=== PATIENT | male | born 1955 | race Caucasian/White ===

== ENCOUNTER 2020-12-23 18:16 | Observation (INO) ==
[2020-12-23] MEDS ORDERED: Calcium Gluconate 1gm/50mL 1 GM/50 ML BAG IVPB ONE (22:11)
[2020-12-23] MEDS ORDERED: Perflutren Lipid Microsphere 1.3 ML in 0.9 % Sodium Chloride 8.7 ML IVP PRN (22:54)
[2020-12-23] MEDS ORDERED: Ondansetron 4 MG/2 ML VIAL IVP PRN (22:55)
[2020-12-23] MEDS ORDERED: Naloxone 0.4 MG/ML INJ IVP PRN (22:55)
[2020-12-23] MEDS ORDERED: Nitroglycerin 0.4 MG TAB.SUBL SL PRN (22:58)
[2020-12-23] MEDS ORDERED: Aspirin Enteric Coated 325 MG Tablet PO SCH (23:00)
[2020-12-23] MEDS ORDERED: Melatonin 3 MG TABLET PO ONE (23:01)
[2020-12-23] MEDS ORDERED: Aspirin Enteric Coated 325 MG Tablet PO ONE (23:07)
[2020-12-23] MEDS ORDERED: *HR* Dextrose 50 % in Water (Vial) 50 ML VIAL IVP PRN (23:42)
[2020-12-23] MEDS ORDERED: D5% in Water 1,000 ML IVC PRN (23:42)
[2020-12-23] MEDS ORDERED: Dextrose Gel 15 GM/37.5 ML TUBE PO PRN ×2 (23:42)
[2020-12-24] MEDS: Insulin LISPRO 300 UNITS/3 ML VIAL SUBQ SCH ×3 (00:10→15:04)
[2020-12-24] MEDS ORDERED: Saliva Stimulant 44.3ml BOTTLE PO PRN (01:12)
[2020-12-24 06:06] LABS: Hematocrit 35.8 % (37.5-50.1); Mean Corpuscular HGB Conc 36.3 g/dL (31.6-35.5); Mean Corpuscular Hemoglobin 33.5 pg (28.0-33.3); Mean Corpuscular Volume 92.3 fL (83.0-100.0); Mean Platelet Volume 9.2 fL (9.4-12.4); Platelet Count 179 K/mcL (140-400); Red Blood Count 3.88 M/mcL (4.19-5.50); Red Cell Distribution Width 11.7 % (11.5-14.5); White Blood Count 11.3 K/mcL (4.3-11.1)
[2020-12-24] MEDS: *HR* Heparin 5,000 UNIT/ML VIAL SQ SCH ×3 (06:16→21:03)
[2020-12-24 06:31] LABS: BUN/Creatinine Ratio 15 (6-26); Blood Urea Nitrogen 13 mg/dL (8-23); Calcium 9.4 mg/dL (8.6-10.3); Carbon Dioxide 25 mEq/L (23-29); Chol/HDL Ratio 4.5 (0-4.9); Cholesterol 159 mg/dL (< 200); Glucose 140 mg/dL (70-105); HDL Cholesterol 35 mg/dL (40-59); LDL Cholesterol,Calculated 97 mg/dL (< 100); Triglycerides 135 mg/dL (< 150); eGFR For African Americans > 60 (> 60); eGFR For Non-African Americans > 60 (> 60)
[2020-12-24] MEDS ORDERED: Regadenoson 0.4 MG/5 ML SYRINGE IVP ONE (06:34)
[2020-12-24 06:35] LABS: Magnesium 1.8 mg/dL (1.6-2.6)
[2020-12-24 06:39] LABS: Thyroid Stimulating Hormone 2.449 mcIU/mL (0.340-5.600)
[2020-12-24 06:49] LABS: Chloride 90 mEq/L (98-107); Osmolality,Calculated 256 (280-300); Potassium 3.8 mEq/L (3.5-5.1); Sodium 122 mEq/L (136-145)
[2020-12-24 08:01] LABS: Estimated Average Glucose 140 mg/dl; Hemoglobin A1C 6.5 %
[2020-12-24] MEDS: Aspirin Enteric Coated 81 MG Tablet PO SCH (10:41)
[2020-12-24] MEDS: Acetaminophen 325 MG TABLET PO PRN (10:52)
[2020-12-24 12:45] LABS: Folate 6.1 ng/mL (3.0-16.0)
[2020-12-24] MEDS ORDERED: 0.9 % Sodium Chloride 1,000 ML IVC SCH (13:15)
[2020-12-24] MEDS ORDERED: lisinopriL 20 MG TABLET PO ONE (15:32)
[2020-12-24] MEDS ORDERED: Melatonin 3 MG TABLET PO PRN (17:19)
[2020-12-24] MEDS ORDERED: *HR* LORazepam 1 MG TABLET PO PRN (18:27)
[2020-12-24] MEDS: Acyclovir 200 MG CAPSULE PO SCH (21:03)
[2020-12-25 02:14] LABS: Hematocrit 35.5 % (37.5-50.1); Hemoglobin 12.3 g/dL (12.9-16.9); Mean Corpuscular HGB Conc 34.6 g/dL (31.6-35.5); Mean Corpuscular Hemoglobin 32.9 pg (28.0-33.3); Mean Corpuscular Volume 94.9 fL (83.0-100.0); Mean Platelet Volume 9.4 fL (9.4-12.4); Platelet Count 185 K/mcL (140-400); Red Blood Count 3.74 M/mcL (4.19-5.50); Red Cell Distribution Width 11.6 % (11.5-14.5); White Blood Count 10.5 K/mcL (4.3-11.1)
[2020-12-25 02:22] LABS: BUN/Creatinine Ratio 13 (6-26); Blood Urea Nitrogen 12 mg/dL (8-23); Calcium 9.1 mg/dL (8.6-10.3); Carbon Dioxide 27 mEq/L (23-29); Chloride 90 mEq/L (98-107); Glucose 137 mg/dL (70-105); Osmolality,Calculated 258 (280-300); Potassium 3.9 mEq/L (3.5-5.1); Sodium 123 mEq/L (136-145); eGFR For African Americans > 60 (> 60); eGFR For Non-African Americans > 60 (> 60)
[2020-12-25] MEDS: Acetaminophen 325 MG TABLET PO PRN (05:24)
[2020-12-25] MEDS: *HR* Heparin 5,000 UNIT/ML VIAL SQ SCH (05:25)
[2020-12-25 06:20] VITALS: BP 135/84
[2020-12-25] MEDS ORDERED: carvediloL 6.25 MG TABLET PO SCH (08:00)
[2020-12-25] MEDS ORDERED: lisinopriL 20 MG TABLET PO SCH (09:00)
[2020-12-25] MEDS: Aspirin Enteric Coated 81 MG Tablet PO SCH (09:21)
[2020-12-25] MEDS: Acyclovir 200 MG CAPSULE PO SCH (09:22)
== END 2020-12-25 11:00 | disposition home or self-care (01) ==
LOC: 2NNU → SUATTDRO 19:56 → 2ANU 12-24 11:57
PROVIDERS: ADMIT Internal Medicine; ATTEND Internal Medicine

== ENCOUNTER 2021-12-15 09:37 | Inpatient (IN) ==
[2021-12-15] MEDS ORDERED: Ondansetron 4 MG/2 ML VIAL IVP PRN (11:42)
[2021-12-15] MEDS ORDERED: Nitroglycerin 0.4 MG TAB.SUBL SL PRN (11:42)
[2021-12-15] MEDS ORDERED: Metoprolol XL (24 HR) Succ 25 MG TAB.ER.24H PO SCH (11:45)
[2021-12-15 12:29] LABS: Basophils % 0.6 %; Eosinophils # 0.4 K/mcL (0.0-0.6); Eosinophils % 5.8 %; Hematocrit 32.8 % (37.5-50.1); Hemoglobin 11.5 g/dL (12.9-16.9); Immature Granulocytes % 0.3 % (0-4); Lymphocytes # 1.3 K/mcL (0.6-4.6); Lymphocytes % 20.7 %; Mean Corpuscular HGB Conc 35.1 g/dL (31.6-35.5); Mean Platelet Volume 9.4 fL (9.4-12.4); Monocytes # 0.7 K/mcL (0.0-1.3); Monocytes % 10.8 %; Neutrophils # 3.9 K/mcL (1.6-8.9); Platelet Count 134 K/mcL (140-400); Red Blood Count 3.38 M/mcL (4.19-5.50); Red Cell Distribution Width 14.4 % (11.5-14.5); Segmented Neutrophils % 61.8 %; White Blood Count 6.4 K/mcL (4.3-11.1)
[2021-12-15 12:51] LABS: Alanine Aminotransferase 20 Units/L (7-52); Albumin 3.7 g/dL (3.5-5.7); Albumin/Globulin Ratio 1.3 (1.1-2.2); Alkaline Phosphatase 62 Units/L (34-104); Aspartate Amino Transferase 13 Units/L (13-39); BUN/Creatinine Ratio 8 (6-26); Blood Urea Nitrogen 8 mg/dL (8-23); Calcium 5.9 mg/dL (8.6-10.3); Carbon Dioxide 23 mEq/L (23-29); Chloride 100 mEq/L (98-107); Globulin 2.9 g/dL (2.4-3.5); Glucose 109 mg/dL (70-105); Osmolality,Calculated 273 (280-300); Potassium 3.5 mEq/L (3.5-5.1); Sodium 132 mEq/L (136-145); Total Protein 6.6 g/dL (6.4-8.9); Troponin I 0.12 ng/mL (< 0.04); eGFR For African Americans > 60 (> 60); eGFR For Non-African Americans > 60 (> 60)
[2021-12-15] MEDS: Calcium Gluconate 1gm/50mL 1 GM/50 ML BAG IVPB SCH ×2 (13:27→14:28)
[2021-12-15] MEDS ORDERED: *HR* Heparin 5,000 UNIT/ML VIAL IVP ONE (13:47)
[2021-12-15] MEDS ORDERED: *HR* Heparin 5,000 UNIT/ML VIAL IVP PRN ×2 (13:47)
[2021-12-15] MEDS: Heparin 25,000UNIT/250ML 1/2NS 25,000 UNIT/250 ML IV.SOLN IVC SCH (14:26)
[2021-12-15 14:54] LABS: Hematocrit 33.2 % (37.5-50.1); Hemoglobin 11.6 g/dL (12.9-16.9); Mean Corpuscular HGB Conc 34.9 g/dL (31.6-35.5); Mean Corpuscular Hemoglobin 33.9 pg (28.0-33.3); Mean Corpuscular Volume 97.1 fL (83.0-100.0); Mean Platelet Volume 9.6 fL (9.4-12.4); Platelet Count 131 K/mcL (140-400); Red Blood Count 3.42 M/mcL (4.19-5.50); Red Cell Distribution Width 14.5 % (11.5-14.5); White Blood Count 6.1 K/mcL (4.3-11.1)
[2021-12-15 15:00] LABS: Heparin anti-factor XA UFH < 0.04 IU/mL (0.30-0.70); INR 1.1; Prothrombin Time 12.6 Seconds (9.4-12.1)
[2021-12-15] MEDS: Spironolactone 25 MG TABLET PO SCH (17:34)
[2021-12-15] MEDS: Bumetanide 1 MG TABLET PO SCH (17:34)
[2021-12-15] MEDS: CEVIMELINE HCL 30 MG PO SCH (20:17)
[2021-12-16 03:46] LABS: Basophils % 0.7 %; Eosinophils # 0.4 K/mcL (0.0-0.6); Eosinophils % 6.1 %; Hematocrit 31.2 % (37.5-50.1); Immature Granulocytes % 0.8 % (0-4); Lymphocytes # 1.2 K/mcL (0.6-4.6); Lymphocytes % 20.1 %; Mean Corpuscular HGB Conc 35.3 g/dL (31.6-35.5); Mean Corpuscular Hemoglobin 34.5 pg (28.0-33.3); Mean Corpuscular Volume 97.8 fL (83.0-100.0); Mean Platelet Volume 9.9 fL (9.4-12.4); Monocytes # 0.6 K/mcL (0.0-1.3); Monocytes % 9.6 %; Neutrophils # 3.7 K/mcL (1.6-8.9); Platelet Count 121 K/mcL (140-400); Red Blood Count 3.19 M/mcL (4.19-5.50); Red Cell Distribution Width 14.3 % (11.5-14.5); Segmented Neutrophils % 62.7 %; White Blood Count 5.9 K/mcL (4.3-11.1)
[2021-12-16 03:55] LABS: INR 1.2
[2021-12-16 04:08] LABS: Alanine Aminotransferase 19 Units/L (7-52); Albumin 3.7 g/dL (3.5-5.7); Albumin/Globulin Ratio 1.4 (1.1-2.2); Alkaline Phosphatase 61 Units/L (34-104); Aspartate Amino Transferase 14 Units/L (13-39); BUN/Creatinine Ratio 10 (6-26); Bilirubin,Total 1.1 mg/dL (0.3-1.0); Blood Urea Nitrogen 11 mg/dL (8-23); Calcium 6.4 mg/dL (8.6-10.3); Carbon Dioxide 24 mEq/L (23-29); Chloride 99 mEq/L (98-107); Globulin 2.7 g/dL (2.4-3.5); Glucose 126 mg/dL (70-105); Magnesium 1.4 mg/dL (1.6-2.6); Osmolality,Calculated 273 (280-300); Potassium 3.4 mEq/L (3.5-5.1); Sodium 131 mEq/L (136-145); Total Protein 6.4 g/dL (6.4-8.9); eGFR For African Americans > 60 (> 60); eGFR For Non-African Americans > 60 (> 60)
[2021-12-16 04:56] LABS: VBG Ionized Calcium 0.79 mmol/L (1.15-1.35)
[2021-12-16] MEDS: Loratadine 10 MG TABLET PO SCH (08:51)
[2021-12-16] MEDS: carvediloL 6.25 MG TABLET PO SCH ×2 (08:51→17:38)
[2021-12-16] MEDS: Cyanocobalamin (B-12) 1,000 MCG TABLET PO SCH (08:51)
[2021-12-16] MEDS: Aspirin 81 MG TAB.CHEW PO SCH (08:51)
[2021-12-16] MEDS: lisinopriL 20 MG TABLET PO SCH (08:54)
[2021-12-16] MEDS: Spironolactone 25 MG TABLET PO SCH (08:54)
[2021-12-16] MEDS ORDERED: (Dapagliflozin Propanediol [Farxiga] 10 MG Tablet) PO SCH (09:00)
[2021-12-16] MEDS: Bumetanide 1 MG/4 ML VIAL IVP SCH ×2 (09:01→17:38)
[2021-12-16] MEDS: Calcium Gluconate 1gm/50mL 1 GM/50 ML BAG IVPB SCH ×2 (09:08→09:41)
[2021-12-16] MEDS: CEVIMELINE HCL 30 MG PO SCH ×3 (09:08→21:41)
[2021-12-16] MEDS: LENALIDOMIDE 10 MG PO SCH (09:08)
[2021-12-16] MEDS: Bumetanide 1 MG TABLET PO SCH (09:21)
[2021-12-16] MEDS: Heparin 25,000UNIT/250ML 1/2NS 25,000 UNIT/250 ML IV.SOLN IVC SCH ×3 (09:41→23:33)
[2021-12-16] MEDS ORDERED: Dextrose Gel 15 GM/37.5 ML TUBE PO PRN ×2 (11:16)
[2021-12-16] MEDS ORDERED: D5% in Water 1,000 ML IVC PRN (11:16)
[2021-12-16] MEDS ORDERED: *HR* Dextrose 50 % in Water (Syg) 50 ML SYRINGE IVP PRN (11:16)
[2021-12-16] MEDS: Insulin LISPRO 300 UNITS/3 ML VIAL SUBQ SCH ×3 (11:42→21:42)
[2021-12-16] MEDS ORDERED: Ergocalciferol (VIT D2) 50,000 UNIT (1.25MG) CAP PO SCH (12:00)
[2021-12-17 03:18] LABS: Basophils % 0.8 %; Eosinophils # 0.3 K/mcL (0.0-0.6); Eosinophils % 6.2 %; Hematocrit 28.1 % (37.5-50.1); Hemoglobin 9.6 g/dL (12.9-16.9); Immature Granulocytes % 0.6 % (0-4); Lymphocytes # 1.4 K/mcL (0.6-4.6); Lymphocytes % 26.6 %; Mean Corpuscular HGB Conc 34.2 g/dL (31.6-35.5); Mean Corpuscular Hemoglobin 33.4 pg (28.0-33.3); Mean Corpuscular Volume 97.9 fL (83.0-100.0); Mean Platelet Volume 10.1 fL (9.4-12.4); Monocytes # 0.7 K/mcL (0.0-1.3); Monocytes % 12.2 %; Neutrophils # 2.9 K/mcL (1.6-8.9); Platelet Count 120 K/mcL (140-400); Red Blood Count 2.87 M/mcL (4.19-5.50); Red Cell Distribution Width 14.3 % (11.5-14.5); Segmented Neutrophils % 53.6 %; White Blood Count 5.3 K/mcL (4.3-11.1)
[2021-12-17 03:38] LABS: BUN/Creatinine Ratio 15 (6-26); Blood Urea Nitrogen 17 mg/dL (8-23); Calcium 6.8 mg/dL (8.6-10.3); Carbon Dioxide 24 mEq/L (23-29); Chloride 101 mEq/L (98-107); Glucose 112 mg/dL (70-105); Osmolality,Calculated 278 (280-300); Potassium 3.5 mEq/L (3.5-5.1); Sodium 133 mEq/L (136-145); eGFR For African Americans > 60 (> 60); eGFR For Non-African Americans > 60 (> 60)
[2021-12-17] MEDS: CEVIMELINE HCL 30 MG PO SCH ×3 (07:27→21:37)
[2021-12-17] MEDS: LENALIDOMIDE 10 MG PO SCH (07:27)
[2021-12-17] MEDS: Insulin LISPRO 300 UNITS/3 ML VIAL SUBQ SCH ×4 (07:27→21:37)
[2021-12-17] MEDS ORDERED: Perflutren Lipid Microsphere 1.3 ML in 0.9 % Sodium Chloride 8.7 ML IVP PRN (07:29)
[2021-12-17] MEDS: Spironolactone 12.5 MG TABLET PO SCH (08:44)
[2021-12-17] MEDS: Bumetanide 1 MG/4 ML VIAL IVP SCH ×2 (08:57→16:04)
[2021-12-17] MEDS: Aspirin 81 MG TAB.CHEW PO SCH (09:02)
[2021-12-17] MEDS: Loratadine 10 MG TABLET PO SCH (09:02)
[2021-12-17] MEDS: lisinopriL 20 MG TABLET PO SCH (09:03)
[2021-12-17] MEDS: Cyanocobalamin (B-12) 1,000 MCG TABLET PO SCH (09:03)
[2021-12-17] MEDS: carvediloL 6.25 MG TABLET PO SCH ×2 (09:05→16:04)
[2021-12-17 11:50] LABS: VBG Ionized Calcium 0.91 mmol/L (1.15-1.35)
[2021-12-17] MEDS: Calcium Gluconate 1gm/50mL 1 GM/50 ML BAG IVPB SCH ×2 (14:29→16:04)
[2021-12-17] MEDS: Heparin 25,000UNIT/250ML 1/2NS 25,000 UNIT/250 ML IV.SOLN IVC SCH (14:34)
[2021-12-17] MEDS ORDERED: Acetaminophen IV 1,000 MG/100 ML BAG IVPB ONE (21:38)
[2021-12-18 06:50] LABS: VBG Ionized Calcium 0.91 mmol/L (1.15-1.35)
[2021-12-18 07:19] LABS: Basophils # 0.1 K/mcL (0.0-0.2); Basophils % 0.9 %; Eosinophils # 0.4 K/mcL (0.0-0.6); Eosinophils % 6.9 %; Hematocrit 30.8 % (37.5-50.1); Hemoglobin 10.6 g/dL (12.9-16.9); Immature Granulocytes % 0.5 % (0-4); Lymphocytes # 1.4 K/mcL (0.6-4.6); Lymphocytes % 25.9 %; Mean Corpuscular HGB Conc 34.4 g/dL (31.6-35.5); Mean Corpuscular Hemoglobin 33.4 pg (28.0-33.3); Mean Corpuscular Volume 97.2 fL (83.0-100.0); Mean Platelet Volume 9.5 fL (9.4-12.4); Monocytes # 0.6 K/mcL (0.0-1.3); Monocytes % 11.3 %; Platelet Count 124 K/mcL (140-400); Red Blood Count 3.17 M/mcL (4.19-5.50); Red Cell Distribution Width 14.3 % (11.5-14.5); Segmented Neutrophils % 54.5 %; White Blood Count 5.5 K/mcL (4.3-11.1)
[2021-12-18 07:20] LABS: BUN/Creatinine Ratio 16 (6-26); Blood Urea Nitrogen 17 mg/dL (8-23); Calcium 7.1 mg/dL (8.6-10.3); Carbon Dioxide 23 mEq/L (23-29); Chloride 100 mEq/L (98-107); Glucose 124 mg/dL (70-105); Osmolality,Calculated 275 (280-300); Potassium 3.4 mEq/L (3.5-5.1); Sodium 131 mEq/L (136-145); eGFR For African Americans > 60 (> 60); eGFR For Non-African Americans > 60 (> 60)
[2021-12-18] MEDS: Spironolactone 12.5 MG TABLET PO SCH (09:23)
[2021-12-18] MEDS: Loratadine 10 MG TABLET PO SCH (09:24)
[2021-12-18] MEDS: Aspirin 81 MG TAB.CHEW PO SCH (09:24)
[2021-12-18] MEDS: Cyanocobalamin (B-12) 1,000 MCG TABLET PO SCH (09:24)
[2021-12-18] MEDS: lisinopriL 20 MG TABLET PO SCH (09:24)
[2021-12-18] MEDS: carvediloL 6.25 MG TABLET PO SCH ×2 (09:24→17:17)
[2021-12-18] MEDS: Insulin LISPRO 300 UNITS/3 ML VIAL SUBQ SCH ×4 (09:25→20:50)
[2021-12-18] MEDS: Bumetanide 1 MG/4 ML VIAL IVP SCH (09:25)
[2021-12-18] MEDS: LENALIDOMIDE 10 MG PO SCH (09:27)
[2021-12-18] MEDS: CEVIMELINE HCL 30 MG PO SCH ×3 (09:27→20:52)
[2021-12-18 09:56] LABS: Uric Acid 7.1 mg/dL (2.3-7.6)
[2021-12-18 10:09] LABS: Thyroid Stimulating Hormone 2.145 mcIU/mL (0.340-5.600)
[2021-12-18] MEDS: Acyclovir 200 MG CAPSULE PO SCH ×2 (14:10→20:49)
[2021-12-18] MEDS: *HR* Heparin 5,000 UNIT/ML VIAL SQ SCH (17:17)
[2021-12-18] MEDS: Bumetanide 1 MG TABLET PO SCH (20:50)
[2021-12-19 01:12] LABS: Basophils # 0.1 K/mcL (0.0-0.2); Basophils % 1.1 %; Eosinophils # 0.4 K/mcL (0.0-0.6); Eosinophils % 7.6 %; Hematocrit 29.8 % (37.5-50.1); Hemoglobin 10.2 g/dL (12.9-16.9); Immature Granulocytes % 0.7 % (0-4); Lymphocytes # 1.5 K/mcL (0.6-4.6); Mean Corpuscular HGB Conc 34.2 g/dL (31.6-35.5); Mean Corpuscular Hemoglobin 33.8 pg (28.0-33.3); Mean Corpuscular Volume 98.7 fL (83.0-100.0); Mean Platelet Volume 9.3 fL (9.4-12.4); Monocytes # 0.7 K/mcL (0.0-1.3); Monocytes % 12.7 %; Neutrophils # 2.7 K/mcL (1.6-8.9); Platelet Count 111 K/mcL (140-400); Red Blood Count 3.02 M/mcL (4.19-5.50); Red Cell Distribution Width 14.5 % (11.5-14.5); Segmented Neutrophils % 49.9 %; White Blood Count 5.4 K/mcL (4.3-11.1)
[2021-12-19 01:30] LABS: Alanine Aminotransferase 25 Units/L (7-52); Albumin 3.5 g/dL (3.5-5.7); Albumin/Globulin Ratio 1.3 (1.1-2.2); Alkaline Phosphatase 62 Units/L (34-104); Aspartate Amino Transferase 17 Units/L (13-39); BUN/Creatinine Ratio 13 (6-26); Bilirubin,Total 0.9 mg/dL (0.3-1.0); Blood Urea Nitrogen 14 mg/dL (8-23); Calcium 7.1 mg/dL (8.6-10.3); Carbon Dioxide 23 mEq/L (23-29); Chloride 100 mEq/L (98-107); Globulin 2.8 g/dL (2.4-3.5); Glucose 135 mg/dL (70-105); Osmolality,Calculated 275 (280-300); Potassium 3.5 mEq/L (3.5-5.1); Sodium 131 mEq/L (136-145); Total Protein 6.3 g/dL (6.4-8.9); eGFR For African Americans > 60 (> 60); eGFR For Non-African Americans > 60 (> 60)
[2021-12-19] MEDS: *HR* Heparin 5,000 UNIT/ML VIAL SQ SCH (05:43)
[2021-12-19] MEDS: Insulin LISPRO 300 UNITS/3 ML VIAL SUBQ SCH (07:29)
[2021-12-19] MEDS: LENALIDOMIDE 10 MG PO SCH (07:30)
[2021-12-19] MEDS: CEVIMELINE HCL 30 MG PO SCH (07:31)
[2021-12-19] MEDS: lisinopriL 20 MG TABLET PO SCH (07:31)
[2021-12-19] MEDS: carvediloL 6.25 MG TABLET PO SCH (07:31)
[2021-12-19] MEDS: Bumetanide 1 MG TABLET PO SCH (07:36)
[2021-12-19] MEDS: Loratadine 10 MG TABLET PO SCH (07:36)
[2021-12-19] MEDS: Cyanocobalamin (B-12) 1,000 MCG TABLET PO SCH (07:36)
[2021-12-19] MEDS: Aspirin 81 MG TAB.CHEW PO SCH (07:36)
[2021-12-19] MEDS: Spironolactone 12.5 MG TABLET PO SCH (07:36)
[2021-12-19] MEDS: Acyclovir 200 MG CAPSULE PO SCH (07:38)
[2021-12-19 08:19] VITALS: BP 99/65; PULSE 73; TEMP 97.9; O2SAT 97
== END 2021-12-19 12:11 | disposition home or self-care (01) | DRG 190 ==
LOC: 2ANU
PROVIDERS: ADMIT Hospitalist; ATTEND Hospitalist

== ENCOUNTER 2022-03-03 07:41 | Inpatient (IN) ==
[2022-03-03] MEDS ORDERED: Iopamidol - 370 500 ML MLS IVP ONE ×2 (07:49→14:45)
[2022-03-03] MEDS ORDERED: 0.9 % Sodium Chloride 1,000 ML IVC ONE (07:49)
[2022-03-03] MEDS ORDERED: Albuterol 2.5 MG/3 ML NEBULIZER IH ONE (07:50)
[2022-03-03 08:51] LABS: Hematocrit 33.2 % (37.5-50.1); Hemoglobin 11.3 g/dL (12.9-16.9); Mean Corpuscular Hemoglobin 35.2 pg (28.0-33.3); Mean Corpuscular Volume 103.4 fL (83.0-100.0); Mean Platelet Volume 9.9 fL (9.4-12.4); Platelet Count 124 K/mcL (140-400); Red Blood Count 3.21 M/mcL (4.19-5.50); Red Cell Distribution Width 14.5 % (11.5-14.5); White Blood Count 6.1 K/mcL (4.3-11.1)
[2022-03-03 08:59] LABS: INR 1.1
[2022-03-03 09:02] LABS: Activated Partial Thrombo Time 30.8 Seconds (26.0-36.0)
[2022-03-03 09:11] LABS: Troponin I 0.08 ng/mL (< 0.04)
[2022-03-03 09:25] LABS: BUN/Creatinine Ratio 12 (6-26); Blood Urea Nitrogen 17 mg/dL (8-23); Calcium 8.3 mg/dL (8.6-10.3); Carbon Dioxide 24 mEq/L (23-29); Chloride 101 mEq/L (98-107); Ethanol < 10 mg/dL (Less than 10); Glucose 171 mg/dL (70-105); Osmolality,Calculated 284 (280-300); Potassium 3.7 mEq/L (3.5-5.1); Sodium 134 mEq/L (136-145)
[2022-03-03] MEDS ORDERED: Aspirin 325 MG TABLET PO ONE (10:04)
[2022-03-03] MEDS ORDERED: Azithromycin 500 MG in 0.9 % Sodium Chloride 250 ML IVPB ONE (10:38)
[2022-03-03] MEDS ORDERED: cefTRIAXone 1,000 MG in 0.9 % Sodium Chloride Mini Bag 100 ML IVPB ONE (10:38)
[2022-03-03] MEDS ORDERED: Ipratropium/Albuterol Neb 3 ML IH ONE (10:46)
[2022-03-03 10:49] LABS: Bilirubin,Urine Negative (Negative); Blood,Urine Negative (Negative); Clarity,Urine Clear (Clear); Color,Urine Colorless (Yellow); Glucose,Urine (UA) >=1000 mg/dL (Normal); Ketones,Urine Negative (Negative); Leukocyte Esterase,Urine Negative (Negative); Nitrite,Urine Negative (Negative); Protein,Urine Trace mg/dL (Neg-Trace); RBC,Urine 0-3 per hpf (0-3); Specific Gravity,Urine > 1.030 (1.010-1.025); Urobilinogen,Urine Normal (Normal); WBC,Urine 0-3 per hpf (0-3)
[2022-03-03 11:08] LABS: Amphetamine Screen,Urine Negative ng/mL (Cutoff=1000); Barbiturate Screen,Urine Negative ng/mL (Cutoff=200); Benzodiazepines Screen,Urine Negative ng/mL (Cutoff=200); Cannabinoid Screen,Urine Negative ng/mL (Cutoff = 50); Cocaine Screen,Urine Negative ng/mL (Cutoff= 300); Opiate Screen,Urine Negative ng/mL (Cutoff=300); Phencyclidine Screen,Urine Negative ng/mL (Cutoff=25)
[2022-03-03] MEDS ORDERED: Naloxone 0.4 MG/ML INJ IVP PRN (11:22)
[2022-03-03] MEDS ORDERED: Ondansetron 4 MG/2 ML VIAL IVP PRN (11:22)
[2022-03-03] MEDS ORDERED: Ipratropium/Albuterol Neb 3 ML IH PRN (13:16)
[2022-03-03 20:09] LABS: Adenovirus Not Detected (Not Detect); Bordetella Pertussis Not Detected (Not Detect); Chlamydophila pneumoniae Not Detected (Not Detect); Coronavirus 229E Not Detected (Not Detect); Coronavirus HKU1 Not Detected (Not Detect); Coronavirus NL63 Not Detected (Not Detect); Coronavirus OC43 Not Detected (Not Detect); Human Metapneumovirus Not Detected (Not Detect); Human Rhinovirus/Enterovirus Not Detected (Not Detect); Influenza A Subtype 2009 H1 Not Detected (Not Detect); Influenza B Not Detected (Not Detect); Mycoplasma pneumoniae Not Detected (Not Detect); Parainfluenza Virus 1 Not Detected (Not Detect); Parainfluenza Virus 2 Not Detected (Not Detect); Parainfluenza Virus 3 Not Detected (Not Detect); Parainfluenza Virus 4 Not Detected (Not Detect); Respiratory Syncytial Virus Not Detected (Not Detect); SARS-CoV-2 Not Detected (Not Detect)
[2022-03-03] MEDS ORDERED: Acetaminophen 325 MG TABLET PO ONE (20:09)
[2022-03-04] MEDS ORDERED: Melatonin 3 MG TABLET PO ONE (00:04)
[2022-03-04 03:53] LABS: Estimated Average Glucose 134 mg/dl; Hemoglobin A1C 6.3 %
[2022-03-04 03:54] LABS: Basophils % 0.4 %; Eosinophils # 0.3 K/mcL (0.0-0.6); Eosinophils % 5.8 %; Hematocrit 28.5 % (37.5-50.1); Hemoglobin 9.8 g/dL (12.9-16.9); Immature Granulocytes % 0.8 % (0-4); Lymphocytes # 1.2 K/mcL (0.6-4.6); Lymphocytes % 23.7 %; Mean Corpuscular HGB Conc 34.4 g/dL (31.6-35.5); Mean Corpuscular Hemoglobin 35.1 pg (28.0-33.3); Mean Corpuscular Volume 102.2 fL (83.0-100.0); Monocytes # 0.7 K/mcL (0.0-1.3); Monocytes % 12.9 %; Neutrophils # 2.8 K/mcL (1.6-8.9); Platelet Count 103 K/mcL (140-400); Red Blood Count 2.79 M/mcL (4.19-5.50); Red Cell Distribution Width 14.3 % (11.5-14.5); Segmented Neutrophils % 56.4 %
[2022-03-04 04:12] LABS: Calcium 7.7 mg/dL (8.6-10.3); Magnesium 1.7 mg/dL (1.6-2.6); Potassium 3.4 mEq/L (3.5-5.1)
[2022-03-04 04:18] LABS: Thyroid Stimulating Hormone 1.798 mcIU/mL (0.340-5.600)
[2022-03-04 04:28] LABS: Folate 5.4 ng/mL (3.0-16.0)
[2022-03-04] MEDS: Aspirin 81 MG TAB.CHEW PO SCH (10:26)
[2022-03-04] MEDS ORDERED: Acetaminophen 325 MG TABLET PO ONE (22:19)
[2022-03-05] MEDS: Acetaminophen 325 MG TABLET PO PRN ×2 (08:30→17:20)
[2022-03-05] MEDS: Aspirin 81 MG TAB.CHEW PO SCH (08:30)
[2022-03-05 09:41] LABS: Hemoglobin 10.2 g/dL (12.9-16.9); Immature Granulocytes % 0.6 % (0-4); Mean Platelet Volume 10.2 fL (9.4-12.4)
[2022-03-05 09:43] LABS: Basophils % 0.6 %; Eosinophils # 0.2 K/mcL (0.0-0.6); Eosinophils % 2.8 %; Hematocrit 29.1 % (37.5-50.1); Immature Platelets 2.5 % (1.1-6.1); Lymphocytes # 0.9 K/mcL (0.6-4.6); Lymphocytes % 17.7 %; Mean Corpuscular HGB Conc 35.1 g/dL (31.6-35.5); Mean Corpuscular Hemoglobin 35.5 pg (28.0-33.3); Mean Corpuscular Volume 101.4 fL (83.0-100.0); Monocytes # 0.5 K/mcL (0.0-1.3); Neutrophils # 3.6 K/mcL (1.6-8.9); Red Blood Count 2.87 M/mcL (4.19-5.50); Red Cell Distribution Width 13.9 % (11.5-14.5); Segmented Neutrophils % 68.3 %; White Blood Count 5.3 K/mcL (4.3-11.1)
[2022-03-05 09:49] LABS: Platelet Count 92 K/mcL (140-400)
[2022-03-05 10:01] LABS: Calcium 7.7 mg/dL (8.6-10.3); Potassium 3.5 mEq/L (3.5-5.1)
[2022-03-05] MEDS: *HR* Enoxaparin 40 MG/0.4 ML SYRINGE SQ SCH (17:18)
[2022-03-06] MEDS: *HR* Enoxaparin 40 MG/0.4 ML SYRINGE SQ SCH (06:30)
[2022-03-06] MEDS: Aspirin 81 MG TAB.CHEW PO SCH (09:48)
[2022-03-06] MEDS: Acetaminophen 325 MG TABLET PO PRN (10:53)
[2022-03-06] MEDS ORDERED: 0.9 % Sodium Chloride 500 ML IVC ONE (11:01)
[2022-03-06] MEDS ORDERED: Lidocaine Viscous Oral Soln 15 ML SOLUTION MM PRN (11:01)
[2022-03-06] MEDS: *HR* Midazolam HCl 5 MG/5 ML VIAL IVP PRN ×4 (11:30→11:40)
[2022-03-06] MEDS: *HR* FentaNYL (PF) 100 MCG/2 ML VIAL IVP PRN ×3 (11:30→11:37)
[2022-03-06 15:31] LABS: Influenza A PCR Negative (Negative); Influenza B PCR Negative (Negative); Resp. Syncytial Virus PCR Negative (Negative)
[2022-03-06 15:57] LABS: SARS-CoV-2 by PCR (In House) Negative (Negative)
[2022-03-06 18:55] VITALS: BP 130/76; PULSE 82; TEMP 98.1; O2SAT 98
== END 2022-03-06 20:10 | disposition other institution (70) | DRG 64 ==
LOC: EMEROOARM 07:41 → 3BNU 07:41 → SUATTDRO 13:59
PROVIDERS: ADMIT Pharmacist; ATTEND Registered Nurse